=== PATIENT | male | born 2000 | race Two or more races ===

== ENCOUNTER 2021-02-18 05:17 | Emergency (ER) | payer MEDICAID, OTHER ==
[~2021-02-18] VITALS: Ht 182.9 cm; Wt 127.0 kg
[2021-02-18 08:15] VITALS: BP 144/55
[2021-02-18] MEDS ORDERED: KETOROLAC TROMETH 30 MG/ML 1ML VIAL IV ONE (08:30)
== END 2021-02-18 08:59 | disposition home or self-care (01) ==
LOC: EDBD 05:17 → ER 05:17
DX: S22.31XA Fracture of one rib, right side, initial encounter for closed fracture (principal); S46.911A Strain of unspecified muscle, fascia and tendon at shoulder and upper arm level, right arm, initial encounter; S76.911A Strain of unspecified muscles, fascia and tendons at thigh level, right thigh, initial encounter; V47.6XXA Car passenger injured in collision with fixed or stationary object in traffic accident, initial encounter; Y93.89 Activity, other specified; Y92.89 Other specified places as the place of occurrence of the external cause; Y99.8 Other external cause status
CPT/HCPCS: 70450; 72125; 73030; 73552; 74176; 96374; 99285; J1885